=== PATIENT | male | born 1955 | race Caucasian/White ===

== ENCOUNTER 2022-06-02 06:12 | Day surgery (SDC) | payer MEDICARE ==
[2022-06-02] MEDS ORDERED: Dextrose 5%-Lactated Ringers 1,000 ML IV SCH (07:00)
[2022-06-02] MEDS ORDERED: Midazolam 1 MG/ML 2 ML SDV ONE (07:10)
[2022-06-02] MEDS ORDERED: Propofol 200 MG/20 ML SDV ONE (07:10)
[2022-06-02] MEDS ORDERED: fentaNYL 50 MCG/ML SDV ONE (07:10)
[2022-06-02 09:05] VITALS: PULSE 54
[2022-06-02 09:15] VITALS: BP 129/77
== END 2022-06-02 09:17 | disposition home or self-care (01) ==
LOC: JP.SDS 06:12
PROVIDERS: ATTEND Family Medicine
DX: Z12.11 Encounter for screening for malignant neoplasm of colon (principal); D12.2 Benign neoplasm of ascending colon; K57.30 Diverticulosis of large intestine without perforation or abscess without bleeding; K64.8 Other hemorrhoids; E11.9 Type 2 diabetes mellitus without complications; I10 Essential (primary) hypertension; E66.9 Obesity, unspecified; Z68.36 Body mass index [BMI] 36.0-36.9, adult
CPT/HCPCS: 45380; J2250; J2704; J3010; J7121

== ENCOUNTER 2025-02-12 07:00 | Inpatient (IN) | payer MEDICARE, BC ==
[2025-02-12 07:35] LABS: PLATELET COUNT,PLT 346.0 K/uL (130-375); RED BLOOD CELL COUNT 4.22 M/uL (4.14-5.76); WHITE BLOOD CELL COUNT,WBC 6.9 K/uL (3.2-11.0)
[2025-02-12] MEDS: Lactated Ringers 1,000 ML IV SCH (07:59)
[2025-02-12] MEDS: Nozin Nasal Sanitizer NASBOTH SCH ×2 (08:00→20:11)
[2025-02-12 08:02] LABS: A/G RATIO 0.9 (1.2-2.2); ALANINE AMINOTRANSFERASE,ALT 48 U/L (12-78); ASPARTATE AMNIOTRANSFERASE,AST 22 U/L (15-37); BILIRUBIN TOTAL 0.5 mg/dL (0.2-1.0); BLOOD UREA NITROGEN,BUN 21 mg/dL (7-18); CARBON DIOXIDE,CO2 31 mmol/L (21-32); CHLORIDE,CL 102 mmol/L (100-108); CREATININE 1.1 mg/dL (0.8-1.3); EST CRCL DRUG DOSING (CG) 64.27 mL/min; ESTIMATED GFR 73 mL/min (>60); GLUCOSE RANDOM 125 mg/dL (74-106); POTASSIUM,K 4.0 mmol/L (3.6-5.2); PROTEIN TOTAL,TP 7.7 g/dL (6.4-8.2); SODIUM,NA 140 mmol/L (140-148)
[2025-02-12] MEDS ORDERED: Magnesium Hydroxide 400 MG/5 ML Susp 30 ML Cup PO PRN (09:49)
[2025-02-12] MEDS ORDERED: fentaNYL 100 MCG/2 ML SDV ONE ×2 (09:58→11:08)
[2025-02-12] MEDS ORDERED: Propofol 200 MG/20 ML SDV ONE ×2 (09:58→10:31)
[2025-02-12] MEDS ORDERED: Midazolam 1 MG/ML 2 ML SDV ONE (09:58)
[2025-02-12] MEDS ORDERED: Glycopyrrolate 0.2 MG/ML 5 ML MDV ONE (10:40)
[2025-02-12] MEDS: Ketorolac 15 MG/ML SDV IVPUSH PRN (12:56)
[2025-02-12] MEDS ORDERED: Ketorolac 30 MG/ML SDV IVPUSH PRN (13:00)
[2025-02-12] MEDS: Calcium Carbonate/Vitamin D3 1500 MG-400 Units Tab PO SCH (20:14)
[2025-02-12] MEDS ORDERED: Non-Formulary Medication 1 Each (Fluticasone Propionate [Flonase Allergy Relief] 9.9 ML Sp NAS SCH (21:00)
[2025-02-12] MEDS ORDERED: Non-Formulary Medication 1 Each (Calcium Carbonate/Vitamin D3 [Calcium 600mg-D3 400 Unit S PO SCH (21:00)
[2025-02-12] MEDS: Ondansetron 4 MG/2 ML SDV IVPUSH PRN (21:22)
[2025-02-13] MEDS: Aspirin 325 MG Tab.EC PO SCH (08:09)
[2025-02-13] MEDS: glipiZIDE 5 MG Tab.ER PO SCH (08:10)
[2025-02-13] MEDS ORDERED: Non-Formulary Medication 1 Each (Famotidine [Pepcid] 40 MG Tablet) PO SCH (09:00)
[2025-02-13] MEDS ORDERED: Non-Formulary Medication 1 Each (Losartan [Cozaar] 100 MG Tablet) PO SCH (09:00)
[2025-02-13] MEDS: Ondansetron 4 MG Tab.DIS PO PRN (15:55)
[2025-02-14 11:36] VITALS: BP 134/62; PULSE 64
== END 2025-02-14 12:26 | disposition home health service (06) | DRG 470 ==
LOC: JP.SDS 07:00 → JP.MS 09:49 → JP.SDS 02-13 16:58 → JP.MS 02-13 16:59
PROVIDERS: ADMIT Physician Assistant; ATTEND Specialist
PROC: 0SRC0J9 Replacement of Right Knee Joint with Synthetic Substitute, Cemented, Open Approach (ICD-10-PCS; principal; 2025-02-12 08:30)
DX: M17.11 Unilateral primary osteoarthritis, right knee (principal); E11.9 Type 2 diabetes mellitus without complications; E66.9 Obesity, unspecified; E78.5 Hyperlipidemia, unspecified; Z68.37 Body mass index [BMI] 37.0-37.9, adult; Z85.46 Personal history of malignant neoplasm of prostate; Z79.82 Long term (current) use of aspirin; Z87.81 Personal history of (healed) traumatic fracture; Z85.830 Personal history of malignant neoplasm of bone; Z98.890 Other specified postprocedural states; Z79.899 Other long term (current) drug therapy; Z79.84 Long term (current) use of oral hypoglycemic drugs
CPT/HCPCS: 01402-QZ; 27447; 36415; 73560-RT; 80053; 85027; 97110-GP; 97116-GP; 97161-GP; 97165-GO; 97530-GP; 97535-GO; A9270-GY; C1713; C1776; J0665; J0690; J1596; J1885; J2250; J2405; J2704; J3010; J7030; J7120; Q0162

== ENCOUNTER 2025-02-18 12:31 | Emergency (ER) | payer MEDICARE, BC ==
[2025-02-18 15:13] VITALS: BP 134/68; PULSE 62
== END 2025-02-18 15:25 | disposition home or self-care (01) ==
LOC: JP.ED 12:31
DX: M96.840 Postprocedural hematoma of a musculoskeletal structure following a musculoskeletal system procedure (principal); M25.561 Pain in right knee; I10 Essential (primary) hypertension; E78.00 Pure hypercholesterolemia, unspecified; E11.9 Type 2 diabetes mellitus without complications; Z79.82 Long term (current) use of aspirin; Z79.899 Other long term (current) drug therapy; Z79.84 Long term (current) use of oral hypoglycemic drugs
CPT/HCPCS: 93971-RT; 99283